=== PATIENT | female | born 2000 | race Caucasian/White ===

== ENCOUNTER → 2020-10-13 16:07 | Outpatient (BNVA) | payer OTHER, SELFPAY | PROVIDERS: Visit Provider Nurse Practitioner Family | DX: Z20.822 Contact with and (suspected) exposure to COVID-19 (principal); Z11.52 Encounter for screening for COVID-19 | CPT/HCPCS: 87635 ==

== ENCOUNTER → 2021-02-28 18:45 | Outpatient (BNVA) | payer SELFPAY | PROVIDERS: Visit Provider Registered Nurse Neonatal Intensive Care | DX: N39.0 Urinary tract infection, site not specified (principal) | CPT/HCPCS: 81000 ==

== ENCOUNTER 2021-04-11 00:48 | Emergency (ER) | payer SELFPAY ==
[2021-04-11 00:57] VITALS: BP 158/103; PULSE 99; RESP 16; TEMP 36.1; O2SAT 99; BMI 34.6
--- NOTE | 2021-04-11 01:40 | USR_ITS ---
PROCEDURE INFORMATION: Exam: US First Trimester, Transabdominal Exam date and time: 04/11/2021 1:40 AM Age: 20 years old Clinical indication: Lmp or gestational age (in weeks): PT unsure guess 8 weeks; Antepartum complications; Bleeding; ; Additional info: Preg vaginal bleeding TECHNIQUE: Imaging protocol: Real-time transabdominal obstetrical ultrasound of the maternal pelvis and a first trimester , less than 14 weeks 0 days, with image documentation. COMPARISON: No relevant prior studies available. FINDINGS: Gestation: There is no evidence for an intrauterine gestation. MATERNAL: Uterus: Heterogeneous material is seen within the uterine endometrium and within the cervix compatible with clotted blood. Cervix: Chronic blood within the cervical canal Right ovary/adnexa: Unremarkable ovary. Left ovary/adnexa: Unremarkable ovary. Intraperitoneal space: No intraperitoneal free fluid. US/US OB <= 14 weeks fetus [id number] IMPRESSION: There is clotted blood seen within the uterine and endocervical canals compatible with incomplete .
[2021-04-11 02:00] LABS: Basophils # 0.1 10^3/uL (0.0-0.1); Basophils % 0.6 %; Eosinophils # 0.1 10^3/uL (0.0-0.8); Eosinophils % 1.3 %; Hematocrit 41.3 % (37.0-47.0); Hemoglobin 13.9 g/dL (11.5-15.3); Lymphocytes # 2.4 10^3/uL (0.8-4.8); Lymphocytes % 27.2 %; Mean Corpuscular HGB Conc 33.7 g/dL (30.0-36.0); Mean Corpuscular Hemoglobin 29.8 pg (28.0-34.0); Mean Corpuscular Volume 88.4 fl (81-99); Mean Platelet Volume 10.1 fL (7.4-10.4); Monocytes # 0.7 10^3/uL (0.2-0.9); Monocytes % 7.6 %; Neutrophils # 5.63 10^3/uL (1.8-7.7); Neutrophils % 63.2 %; Nucleated Red Blood Cells % 0 %; Platelet Count 298 10^3/cmm (130-400); Red Blood Count 4.67 10^6/uL (4.1-5.3); Red Cell Distribution Width 12.8 % (12.1-15.1); White Blood Count 8.9 10^3/uL (4.0-10.0)
[2021-04-11] MEDS: sodium chloride 0.9% 1,000 ML 999 ML IV (02:03)
[2021-04-11 02:12] VITALS: BP 145/81; PULSE 85; RESP 16; TEMP 36.1; O2SAT 99
[2021-04-11 02:30] LABS: Albumin Level 4.4 g/dL (3.5-5.2); Alkaline Phosphatase 83 IU/L (35-105); Blood Urea Nitrogen 10 mg/dL (6-20); Calcium 9.5 mg/dL (8.5-10.5); Carbon Dioxide 21 mmol/L (22-29); Chloride 105 mmol/L (98-107); Globulin 2.9 g/dL (1.3-4.6); Glomerular Filtration Rate 155.7 mL/min (90-130); Glucose 78 mg/dL (65-115); Lipase 27 U/L (13-60); Osmolality Calculated 286 mOsm/kg (285-295); Sodium 139 mmol/L (136-145); Total Bilirubin 0.3 mg/dL (0.15-1.2); Total Protein 7.3 g/dL (6.6-8.7)
[2021-04-11 02:32] LABS: Alanine Aminotransferase 11 U/L (0-33); Anion Gap 17.8 (5-19); Aspartate Amino Transferase 26 U/L (0-32); Potassium 4.8 mmol/L (3.5-5.1)
--- NOTE | 2021-04-11 03:02 | ED_ITS ---
HPI - Female Genitourinary General: Chief complaint: Vaginal Bleeding Stated complaint: ABD Pain Possible Miscarriage Time Seen by Provider: 04/11/21 01:42 History of Present Illness: HPI Narrative: Healthy 20-year-old female who had lost track of her period. She reports that she had taken a test at home and it was positive. She also notes that she passed what looks to her like tissue along with clots 4 to 5 days ago. She has been bleeding since. Last evening her cramping was more intense, and she had continue to bleed. No fever. No vomiting. MD elicited complaint: vaginal bleeding and suspected Pertinent past history: other Onset (ago): day(s) Location of symptoms: pelvis Quality of pain: cramping Consistency: intermittent Vaginal discharge: none Vaginal bleeding: moderate Exacerbating factors: none Relieving factors: none Associated symptoms: Reports abdominal pain, nausea and vaginal bleeding; Deny fevers/chills or syncope Possible : unsure if and at home test positive Review of Systems Const: Denies: fever(s) or chills Card: Denies: chest pain or syncope Resp: Denies: dyspnea GI: Reports: abdominal pain and nausea [facility] ED PFSH: Social History (Updated 10/13/20 @ 15:15 by Mahi Chauhan NP) Smoking and tobacco status: never smoked Alcohol intake: never Physical Exam Const: COMMON NORMALS: no acute distress GENERAL APPEARANCE: cooperative and comfortable; not ill appearing HENMT: COMMON NORMALS: normocephalic and atraumatic HEAD & SCALP: normocephalic and atraumatic Chest: COMMONS NORMALS: normal inspection of the chest Resp: COMMON NORMALS: normal respiratory effort, No use of accessory muscles and clear to auscultation bilaterally AUSCULTATION: clear to auscultation bilaterally Cardio: COMMON NORMALS: regular rate and regular rhythm RATE: regular rate RHYTHM: regular rhythm GI: COMMON NORMALS: Normal to inspection, nondistended, normoactive bowel sounds present and Soft to palpation PALPATION: Yes Soft to palpation and Yes Tenderness to palpation present (GI) (Suprapubic) Details: LLQ and RLQ : SPECULUM EXAM - VAGINA: Yes vaginal bleeding OB/EXTERNAL & SPECULUM: vaginal bleeding Course Vital Signs: Vital signs: Vital Signs Temperature 96.9 F L 04/11/21 02:12 Pulse Rate 85 04/11/21 02:12 Respiratory Rate 16 04/11/21 02:12 Blood Pressure 145/81 04/11/21 02:12 Pulse Oximetry 99 04/11/21 02:12 MDM - Female MDM Narrative: Medical decision making narrative: CBC is normal. BMP is essentially normal. Serum quant is 0.5. Pelvic ultrasound reveals material in the uterus, which could be consistent with incomplete . This would be unlikely with a serum quant of 0.5 unless the was lost very early in gestation several days prior. We will have her follow-up with gynecology as an outpatient. Lab Data: Labs: Lab Results 04/11/21 04/11/21 04/11/21 01:50 01:50 01:50 WBC 8.9 10^3/uL 10^3/ uL (4.0-10.0) RBC 4.67 10^6/uL 10^6 /uL (4.1-5.3) Hgb 13.9 g/dL g/dL (11.5-15.3) Hct 41.3 % % (37.0-47.0) MCV 88.4 fl fl (81-99) MCH 29.8 pg pg (28.0-34.0) MCHC 33.7 g/dL g/dL (30.0-36.0) RDW 12.8 % % (12.1-15.1) Plt Count 298 10^3/cmm 10^3 /cmm (130-400) MPV 10.1 fL fL (7.4-10.4) Neut % (Auto) 63.2 % % Lymph % (Auto) 27.2 % % [place] % (Auto) 7.6 % % Eos % (Auto) 1.3 % % Baso % (Auto) 0.6 % % Neut # (Auto) 5.63 10^3/uL 10^3 /uL (1.8-7.7) Lymph # (Auto) 2.4 10^3/uL 10^3/ uL (0.8-4.8) [place] # (Auto) 0.7 10^3/uL 10^3/ uL (0.2-0.9) Eos # (Auto) 0.1 10^3/uL 10^3/ uL (0.0-0.8) Baso # (Auto) 0.1 10^3/uL 10^3/ uL (0.0-0.1) Nucleated RBC % (a uto) 0 % % Nucleated RBCs # 0.0 /100WBC /100W BC Sodium 139 mmol/L mmol/L (136-145) Potassium 4.8 mmol/L mmol/L (3.5-5.1) Chloride 105 mmol/L mmol/L (98-107) Carbon Dioxide 21 mmol/L L mmol/ L (22-29) Anion Gap 17.8 (5-19) BUN 10 mg/dL mg/dL (6-20) Creatinine 0.5 mg/dL mg/dL (0.5-0.9) GFR Calculation 155.7 mL/min H mL /min (90-130) Glucose 78 mg/dL mg/dL (65-115) Calculated Osmolal ity 286 mOsm/kg mOsm/ kg (285-295) Calcium 9.5 mg/dL mg/dL (8.5-10.5) Total Bilirubin 0.3 mg/dL mg/dL (0.15-1.2) AST 26 U/L U/L (0-32) ALT 11 U/L U/L (0-33) Alkaline Phosphata se 83 IU/L IU/L (35-105) Total Protein 7.3 g/dL g/dL (6.6-8.7) Albumin 4.4 g/dL g/dL (3.5-5.2) Globulin 2.9 g/dL g/dL (1.3-4.6) Lipase 27 U/L U/L (13-60) Ser , Vesna i-Qnt 0.50 mIU/mL mIU/m L Blood Type A Positive Rho(D) Type Positive Discharge Plan Discharge Patient Disposition: Home Clinical Impression: Vaginal bleeding Condition: Stable Prescriptions: No Action No Known Home Medications RF: 0 Discharge Orders: Discharge ED (Routine); Ordered 04/11/21 Ordered By: You Castañeda Referrals: Kaylin Hogan DO [Physician] - 1-3 days Patient Instructions: Miscarriage (ED), Abnormal (Dysfunctional) Uterine Bleeding (ED) Activity Restrictions/Additional Instructions: Return for passage of large clots, soaking 1 pad per hour for more than 3 hours. Return also for fever greater than 100, worsening pain, vomiting liquids, any other concerning symptoms. Coding Level of Care Code ED Batch Operator for Chg Fwd Exam Detailed
[2021-04-11 03:18] VITALS: BP 145/81; PULSE 85; RESP 16; TEMP 36.8; O2SAT 99
--- NOTE | 2021-04-13 15:48 | DCPLANNER ---
Addendum entered by Tessa West 05/23/21 15:37: cafe manager was told that clinic was unable to reach patient to schedule an appointment, clinic sent patient a letter requesting patient to call clinic to schedule an appointment. Original Note: cafe manager had message to schedule a follow up appointment for patient with [facility]. cafe manager [facility], spoke with Nael, gave clinic patients information. cafe manager was told that patients information would be printed and reviewed. Clinic will call patient with appointment information.
== END 2021-04-11 03:19 | disposition home or self-care (01) ==
PROVIDERS: Emergency Provider Emergency Medicine
DX: N93.9 Abnormal uterine and vaginal bleeding, unspecified (principal)
CPT/HCPCS: 76801; 80053; 83690; 84702; 85025; 86900; 96360; 99283; J7030

== ENCOUNTER 2021-04-20 11:26 | Emergency (ER) | payer SELFPAY ==
[2021-04-20 12:55] VITALS: BP 159/103; PULSE 79; RESP 18; TEMP 36.7; O2SAT 99; BMI 34.0
--- NOTE | 2021-04-20 13:06 | US_ITS ---
WS: [id number] TRANSABDOMINAL PELVIC AND TRANSVAGINAL PELVIC ULTRASOUND HISTORY: recent miscarriage, abd pain RLQ COMPARISON: None available. Uterus: 7.0 cm x 5.9 cm x 3.7 cm. Uterus is retroverted on transvaginal imaging. Uterus is normal siz e. Endometrium: 1.4 cm. Thickened heterogeneous endometrium. There is variable echogenicity throughout t he endometrium. No gestational sac. No cardiac activity. Right ovary: 4.9 cm x 3.3 cm x 3.3 cm. RIGHT ovary contains a simple cyst measuring 2.3 x 2.2 cm. The re is slight increased vascularity surrounding the cyst. There are a few additional smaller cysts. Left ovary: 2.1 cm x 2.3 cm x 1.2 cm. Normal size ovary. No free fluid. US/US pelvic with transvaginal IMPRESSION: 1. Thickened heterogeneous endometrium. No intrauterine gestation identified. 2. No free fluid in the cul-de-sac. 3. RIGHT ovarian cyst. 4. If there is a positive beta hCG ectopic is not excluded. Recommen d follow-up with beta hCG levels and/or ultrasound.
--- NOTE | 2021-04-20 13:07 | ED_ITS ---
Documented by User: PA Severino 04/20/21 15:12 HPI - Abdominal Pain General: Chief Complaint: Abdominal Pain Stated Complaint: ABD Pain Time Seen by Provider: 04/20/21 13:05 History of Present Illness: HPI narrative: Presents with abdominal pain. States it was a sharp pain this morning right lower quadrant area and come from the right flank into her pelvic area. Patient was a seen for miscarriage here on April 11. He has not had follow-up. Patient states she might have some discharge that is cloudy. Is not bleeding anymore. Said pain has improved now since she has been here at the ER. Denies any fever chills or problems urinating. Ultrasound study on the revealed that there is still possible tissue inside the uterus. Associated Symptoms: Denies chills, fever(s), nausea and vomiting Review of Systems Const: Denies: fever(s), chills or body aches Eyes: Denies: change in vision or blurry vision ENMT: Denies: throat pain or nasal congestion Card: Denies: chest pain or dyspnea on exertion Resp: Denies: dyspnea, productive cough or non-productive cough GI: Reports: abdominal pain (Right lower quadrant, was acute onset earlier today. Pain is gone now.); Denies: nausea or vomiting : Denies: vaginal odor or vaginal bleeding Musc: Denies: extremity pain Skin/Breast: Denies: rash Neuro: Denies: headache(s) Psych: Denies: anxiety or depression Jose/Lymph: Denies: easy bruising PFSH ED PFSH: Social History (Updated 10/13/20 @ 15:15 by Mahi Chauhan NP) Smoking and tobacco status: never smoked Alcohol intake: never Physical Exam Const: COMMON NORMALS: no acute distress, average body habitus and patient oriented x3 HENMT: COMMON NORMALS: normocephalic HEAD & SCALP: normal to inspection and normocephalic FACE & SINUS: normal facial exam Eye: COMMON NORMALS: conjunctivae normal GENERAL EYE: appearance normal, both eyes and all related structures CONJUNCTIVA: Yes conjunctivae normal Neck/C-Spine: COMMON NORMALS: no JVD Chest: COMMONS NORMALS: normal inspection of the chest Resp: COMMON NORMALS: normal respiratory effort Cardio: COMMON NORMALS: no JVD, regular rate and regular rhythm RATE: regular rate RHYTHM: regular rhythm GI: COMMON NORMALS: Normal to inspection, nondistended, normoactive bowel sounds present PALPATION: Yes Tenderness to palpation present (GI) Extremity: COMMON NORMALS: normal to inspection and full ROM Neuro: COMMON NORMALS: patient oriented x3 Course Vital Signs: Vital signs: Vital Signs Temperature 98.1 F 04/20/21 15:16 Pulse Rate 79 04/20/21 15:16 Respiratory Rate 18 04/20/21 15:16 Blood Pressure 159/103 04/20/21 15:16 Pulse Oximetry 99 04/20/21 15:16 MDM - Abdominal Pain MDM Narrative Medical decision making narrative: Patient here for right lower quadrant pain that started earlier today. Patient was here on the 10th with miscarriage. CBC was done and did not show any signs affection and pelvic ultrasound was done which shows right ovarian cyst beta-hCG is below what it was the other day. Patient in no pain. Lab Data Result diagrams: 04/20/21 13:30 Labs: Lab Results 04/20/21 04/20/21 13:30 13:30 WBC 9.8 10^3/uL 10^3/uL (4.0-10.0) RBC 4.56 10^6/uL 10^6/uL (4.1-5.3) Hgb 13.8 g/dL g/dL (11.5-15.3) Hct 40.2 % % (37.0-47.0) MCV 88.2 fl fl (81-99) MCH 30.3 pg pg (28.0-34.0) MCHC 34.3 g/dL g/dL (30.0-36.0) RDW 12.6 % % (12.1-15.1) Plt Count 300 10^3/cmm 10^3/cmm (130-400) MPV 10.3 fL fL (7.4-10.4) Neut % (Auto) 62.5 % % Lymph % (Auto) 29.3 % % [place] % (Auto) 5.7 % % Eos % (Auto) 1.5 % % Baso % (Auto) 0.6 % % Neut # (Auto) 6.14 10^3/uL 10^3/uL (1.8-7.7) Lymph # (Auto) 2.9 10^3/uL 10^3/uL (0.8-4.8) [place] # (Auto) 0.6 10^3/uL 10^3/uL (0.2-0.9) Eos # (Auto) 0.2 10^3/uL 10^3/uL (0.0-0.8) Baso # (Auto) 0.1 10^3/uL 10^3/uL (0.0-0.1) Nucleated RBC % (auto) 0 % % Nucleated RBCs # 0.0 /100WBC /100WBC Ser , Semi-Qnt 0.50 mIU/mL mIU/mL Discharge Plan Discharge Patient Disposition: Home Clinical Impression: Ovarian cyst Qualifiers: Laterality: right Qualified Code(s): N83.201 - Unspecified ovarian cyst, right side Condition: Stable Prescriptions: No Action No Known Home Medications 0RF Discharge Orders: Discharge ED (Routine); Ordered 04/20/21 Ordered By: Marshall Chinchilla Discharge Diet: Usual diet Discharge Activity: Increase activity as tolerated Patient Instructions: Ovarian Cyst (ED) Activity Restrictions/Additional Instructions: Follow-up with your [employer] doctor as necessary please. Take naproxen 2 tablets 250 mg 2-3 times a day as needed for discomfort. Apply moist heat to area as needed. Return if worsening symptoms. Coding Level of Care Code ED Lead Performance Support Analyst for Chg Fwd Exam Comprehensive Documented by User: Blake Covarrubias DO 04/26/21 06:18 HPI - Abdominal Pain General: Chief Complaint: Abdominal Pain Stated Complaint: ABD Pain Time Seen by Provider: 04/20/21 13:05 PFSH ED PFSH: Social History (Updated 10/13/20 @ 15:15 by Mahi Chauhan NP) Smoking and tobacco status: never smoked Alcohol intake: never Course Vital Signs: Vital signs: Vital Signs Temperature 98.1 F 04/20/21 15:16 Pulse Rate 79 04/20/21 15:16 Respiratory Rate 18 04/20/21 15:16 Blood Pressure 159/103 04/20/21 15:16 Pulse Oximetry 99 04/20/21 15:16 MDM - Abdominal Pain MDM Narrative Medical decision making narrative: Chart reviewed and patient discussed with midlevel. Agree with assessment and plan. Medical Records Attestation: I reviewed the patient's medical records. Lab Data Result diagrams: 04/20/21 13:30 Labs: Lab Results 04/20/21 04/20/21 13:30 13:30 WBC 9.8 10^3/uL 10^3/uL (4.0-10.0) RBC 4.56 10^6/uL 10^6/uL (4.1-5.3) Hgb 13.8 g/dL g/dL (11.5-15.3) Hct 40.2 % % (37.0-47.0) MCV 88.2 fl fl (81-99) MCH 30.3 pg pg (28.0-34.0) MCHC 34.3 g/dL g/dL (30.0-36.0) RDW 12.6 % % (12.1-15.1) Plt Count 300 10^3/cmm 10^3/cmm (130-400) MPV 10.3 fL fL (7.4-10.4) Neut % (Auto) 62.5 % % Lymph % (Auto) 29.3 % % [place] % (Auto) 5.7 % % Eos % (Auto) 1.5 % % Baso % (Auto) 0.6 % % Neut # (Auto) 6.14 10^3/uL 10^3/uL (1.8-7.7) Lymph # (Auto) 2.9 10^3/uL 10^3/uL (0.8-4.8) [place] # (Auto) 0.6 10^3/uL 10^3/uL (0.2-0.9) Eos # (Auto) 0.2 10^3/uL 10^3/uL (0.0-0.8) Baso # (Auto) 0.1 10^3/uL 10^3/uL (0.0-0.1) Nucleated RBC % (auto) 0 % % Nucleated RBCs # 0.0 /100WBC /100WBC Ser , Semi-Qnt 0.50 mIU/mL mIU/mL Discharge Plan Discharge Patient Disposition: Home Clinical Impression: Ovarian cyst Qualifiers: Laterality: right Qualified Code(s): N83.201 - Unspecified ovarian cyst, right side Condition: Stable Prescriptions: No Action No Known Home Medications 0RF Discharge Orders: Discharge ED (Routine); Ordered 04/20/21 Ordered By: Marshall Chinchilla Discharge Diet: Usual diet Discharge Activity: Increase activity as tolerated Patient Instructions: Ovarian Cyst (ED) Activity Restrictions/Additional Instructions: Follow-up with your [employer] doctor as necessary please. Take naproxen 2 tablets 250 mg 2-3 times a day as needed for discomfort. Apply moist heat to area as needed. Return if worsening symptoms. Coding Level of Care Code ED Lead Performance Support Analyst for [place] Fwd Exam Comprehensive
[2021-04-20 13:40] LABS: Basophils # 0.1 10^3/uL (0.0-0.1); Basophils % 0.6 %; Eosinophils # 0.2 10^3/uL (0.0-0.8); Eosinophils % 1.5 %; Hematocrit 40.2 % (37.0-47.0); Hemoglobin 13.8 g/dL (11.5-15.3); Lymphocytes # 2.9 10^3/uL (0.8-4.8); Lymphocytes % 29.3 %; Mean Corpuscular HGB Conc 34.3 g/dL (30.0-36.0); Mean Corpuscular Hemoglobin 30.3 pg (28.0-34.0); Mean Corpuscular Volume 88.2 fl (81-99); Mean Platelet Volume 10.3 fL (7.4-10.4); Monocytes # 0.6 10^3/uL (0.2-0.9); Monocytes % 5.7 %; Neutrophils # 6.14 10^3/uL (1.8-7.7); Neutrophils % 62.5 %; Nucleated Red Blood Cells % 0 %; Platelet Count 300 10^3/cmm (130-400); Red Blood Count 4.56 10^6/uL (4.1-5.3); Red Cell Distribution Width 12.6 % (12.1-15.1); White Blood Count 9.8 10^3/uL (4.0-10.0)
[2021-04-20 15:10] VITALS: BP 159/103; PULSE 79; RESP 18; TEMP 36.7; O2SAT 99
[2021-04-20 15:16] VITALS: BP 159/103; PULSE 79; RESP 18; TEMP 36.7; O2SAT 99
== END 2021-04-20 15:19 | disposition home or self-care (01) ==
PROVIDERS: Emergency Provider Nurse Practitioner Family
DX: N83.201 Unspecified ovarian cyst, right side (principal); Z87.59 Personal history of other complications of pregnancy, childbirth and the puerperium
CPT/HCPCS: 12345; 76830; 76856; 84702; 85025; 99283

== ENCOUNTER 2021-08-01 08:53 | Emergency (ER) | payer OTHER, SELFPAY ==
[2021-08-01] VITALS (11 sets, daily range): BP systolic 121–146; BP diastolic 83–97; PULSE 69–96; RESP 13–21; TEMP 36.6; O2SAT 98–100; BMI 36.3
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
--- NOTE | 2021-08-01 08:54 | ECG_ITS ---
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 Measurements Intervals [place] Rate: 64 P: 47 IL: 130 QRS: 42 QRSD: 97 T: 32 QT: 381 QTc: 396 Interpretive Statements SINUS RHYTHM INTERPRETATION BASED ON A DEFAULT AGE OF 40 YEARS No previous ECG available for comparison Electronically Signed On 08-01-2021 16:31:53 CDT by Scott Smith M.D. [id number]
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
[2021-08-01] MEDS: lactated ringers 1,000 ML 999 ML IV (09:19)
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
[2021-08-01 09:47] LABS: Basophils % 0.5 %; Eosinophils % 0.3 %; Hematocrit 42.1 % (37.0-47.0); Lymphocytes # 1.1 10^3/uL (0.8-4.8); Mean Corpuscular HGB Conc 33.3 g/dL (30.0-36.0); Mean Corpuscular Hemoglobin 29.9 pg (28.0-34.0); Mean Corpuscular Volume 89.8 fl (81-99); Mean Platelet Volume 10.3 fL (7.4-10.4); Monocytes # 0.3 10^3/uL (0.2-0.9); Monocytes % 4.1 %; Neutrophils # 5.99 10^3/uL (1.8-7.7); Nucleated Red Blood Cells % 0 %; Platelet Count 298 10^3/cmm (130-400); Red Blood Count 4.69 10^6/uL (4.1-5.3); Red Cell Distribution Width 12.9 % (12.1-15.1); White Blood Count 7.6 10^3/uL (4.0-10.0)
[2021-08-01 10:03] LABS: Lactic Sepsis W/Reflex 1.8 mmol/L (0.5-2.2)
[2021-08-01 10:05] LABS: Alanine Aminotransferase 15 U/L (0-33); Albumin Level 4.7 g/dL (3.5-5.2); Alkaline Phosphatase 96 IU/L (35-105); Anion Gap 15.5 (5-19); Aspartate Amino Transferase 17 U/L (0-32); Blood Urea Nitrogen 5 mg/dL (6-20); Calcium 8.2 mg/dL (8.5-10.5); Carbon Dioxide 24 mmol/L (22-29); Chloride 106 mmol/L (98-107); Globulin 2.6 g/dL (1.3-4.6); Glomerular Filtration Rate 155.7 mL/min (90-130); Glucose 115 mg/dL (65-115); Osmolality Calculated 292 mOsm/kg (285-295); Potassium 3.5 mmol/L (3.5-5.1); Sodium 142 mmol/L (136-145); Total Bilirubin 0.2 mg/dL (0.15-1.2); Total Protein 7.3 g/dL (6.6-8.7)
[2021-08-01 10:07] LABS: Acetaminophen < 5.0 ug/mL (10-30); Salicylate < 0.3 mg/dL (3-10)
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
[2021-08-01 11:01] LABS: Alcohol Level 187 mg/dL (0-10)
[2021-08-01 11:16] LABS: Amphetamines Screen Urine Negative (Negative); Barbiturates Screen Urine Negative (Negative); Benzodiazepines Screen Urine Negative (Negative); Cocaine Screen Urine Negative (Negative); Opiate Screen Urine Negative (Negative); PCP Screen Urine Negative (Negative); THC Screen Urine Negative (Negative)
[2021-08-01 11:18] LABS: Add Urine Microscopic? YES; Bilirubin Urine Neg (Negative); Blood Urine 3+ (Negative); Glucose Urine UA Norm (Normal); Ketones Urine Negative (Negative); Leukocyte Esterase Urine Negative (Negative); Nitrate Urine Negative (Negative); Protein Urine Neg (Negative); Urine Appearance Clear (CLEAR); Urine Color Straw (Yellow); Urobilinogen Urine Norm (Negative); pH Urine 5 (5-7)
[2021-08-01 11:19] LABS: Add Urine Culture? No; Bacteria Urine 1+ /hpf; Mucus Urine TRACE /hpf; Squamous Epithelial Cell Urine RARE /hpf (0-5); WBC Urine 0-4 /hpf (0-5)
--- NOTE | 2021-08-01 12:16 | PC.NURSE ---
PT placed on continuous NIBP, SpO2, and CM
[2021-08-01 14:12] LABS: HCG, Serum Qual Negative (Negative)
[2021-08-01] MEDS: iohexol 350 mg/mL 100 mL Btl IV (14:32)
--- NOTE | 2021-08-02 12:24 | DCPLANNER ---
Addendum entered by Tessa West 08/04/21 15:06: Patient had a follow up appointment scheduled with Dr. Chauhan on 08.03.21 - patient did attend appointment. Original Note: Patient is to have a follow up appointment scheduled with Dr. Chauhan. ed manager sent patients information to the office of Dr. Chauhan. Patients information will be reviewed. Clinic will call patient with appointment information.
== END 2021-08-01 15:34 | disposition home or self-care (01) ==
PROVIDERS: Emergency Provider Family Medicine
DX: S02.31XA Fracture of orbital floor, right side, initial encounter for closed fracture (principal); X58.XXXA Exposure to other specified factors, initial encounter; Y09 Assault by unspecified means; F10.129 Alcohol abuse with intoxication, unspecified; Y90.6 Blood alcohol level of 120-199 mg/100 ml; R41.0 Disorientation, unspecified; R51.9 Headache, unspecified; R11.2 Nausea with vomiting, unspecified
CPT/HCPCS: 36600; 70450; 70486; 71045; 71260; 72125; 74177; 80051; 80053; 80306; 80307; 81001; 82330; 82805; 83605; 84703; 85025; 93005; 96360; 99285; Q9967

== ENCOUNTER 2021-09-18 19:12 | Emergency (ER) | payer OTHER, SELFPAY ==
[2021-09-18 19:37] VITALS: BP 150/106; PULSE 105; RESP 16; TEMP 36.7; O2SAT 100
--- NOTE | 2021-09-18 20:52 | W.ED.FEMALGU ---
HPI - Female Genitourinary General: Chief complaint: Urogenital-Female Stated complaint: pain in priavte area Time Seen by Provider: 09/18/21 20:41 Source: patient Mode of arrival: ambulatory Limitations: no limitations History of Present Illness: Patient is a 20-year-old female who presents to ED today with a complaint of vaginal discharge, burning, itching, labial swelling and redness. She states symptoms initially began approximately a month ago following an antibiotic course. He states she is not having any pelvic pain or painful intercourse. Reports her last sexual encounter was early July. She does state she has noticed a rash to her genitals. MD elicited complaint: other (vaginal discharge, itching, burning, lesions) Onset (ago): week(s) Location of symptoms: external genitalia Vaginal discharge: white and yellow Vaginal bleeding: none Exacerbating factors: urination (causes burning to skin ) Relieving factors: none Associated symptoms: Reports no associated symptoms and vaginal discharge; Deny abdominal pain Treatment prior to arrival: none Sexual activity: Yes (no new sexual partners) Patient : No Review of Systems Const: Denies: fever(s), chills, body aches, fatigue or malaise GI: Denies: abdominal pain : Reports: genital pruritis and vaginal discharge; Denies: flank pain, dysuria, urinary frequency, urinary urgency, urinary hesitancy, hematuria or pelvic pain Musc: Denies: back pain PFSH ED PFSH: Medical History No significant past medical history Surgical History No pertinent past surgical history Social History Smoking and tobacco status: never smoked Alcohol intake: never Physical Exam Const: COMMON NORMALS: no acute distress, patient oriented x3, no limitations and alert GENERAL APPEARANCE: cooperative Resp: COMMON NORMALS: normal respiratory effort and clear to auscultation bilaterally AUSCULTATION: clear to auscultation bilaterally Cardio: COMMON NORMALS: regular rate and regular rhythm RATE: regular rate RHYTHM: regular rhythm : COMMON NORMALS: Yes no CVA tenderness BLADDER/KIDNEY EXAM: Yes no CVA tenderness OTHER: patient defers pelvic exam; she does have pictures on her phone of genital rash/lesions-she has some minor ulcerative/irritative lesions to bilateral inner labial minora tissue and there appears to be quite a bit of generalized labial erythema/edema; there are no vesicular lesions Back/Pelvis: COMMON NORMALS: no CVA tenderness Neuro: COMMON NORMALS: patient oriented x3 SENSORIUM/ORIENTATION: Yes alert Course Vital Signs: Vital signs: Vital Signs Temperature 98.0 F 09/18/21 19:37 Pulse Rate 105 H 09/18/21 19:37 Respiratory Rate 16 09/18/21 19:37 Blood Pressure 150/106 09/18/21 19:37 Pulse Oximetry 100 09/18/21 19:37 MDM - Female Medical Decision Making Patient testing positive for Trichomonas on her wet prep. Gonorrhea/chlamydia panel pending. UA does not look overly suspicious for UTI. We will culture. negative. Discussed alerting any sexual partners and also getting treatment for them. Discussed without a pelvic exam is hard to definitively diagnose certain conditions including the vulvar lesions that patient has. She states these have been present for over a month. Based on the pictures she showed me I do not overly suspect HSV etiology though certainly a possibility. I did recommend [facility] which she is agreeable to. She states she does want to receive prophylactic treatment for gonorrhea and chlamydia therefore she was given IM Rocephin and will be sent home with doxycycline as well as the Flagyl for the Trichomonas infection. Lab Data Laboratory Results Urine Color Yellow (Yellow) 09/18/21 20:45 Urine Appearance Clear (CLEAR) 09/18/21 20:45 Urine pH 8 (5-7) H 09/18/21 20:45 Ur Specific [place] 1.005 (1.005-1.030) 09/18/21 20:45 Urine Protein Neg (Negative) 09/18/21 20:45 Urine Glucose (UA) Norm (Normal) 09/18/21 20:45 Urine Ketones Negative (Negative) 09/18/21 20:45 Urine Blood Neg (Negative) 09/18/21 20:45 Urine Nitrate Negative (Negative) 09/18/21 20:45 Urine Bilirubin Neg (Negative) 09/18/21 20:45 Urine Urobilinogen Norm mg/dL (Negative) 09/18/21 20:45 Ur Leukocyte Esterase 1+ (Negative) H 09/18/21 20:45 Urine RBC 0-4 /hpf (0-2) H 09/18/21 20:45 Urine WBC 10-15 /hpf (0-5) H 09/18/21 20:45 Ur Squamous Epith Cells 0-4 /hpf (0-5) H 09/18/21 20:45 Amorphous Sediment Not Reportable 09/18/21 20:45 Urine Bacteria Trace /hpf (NONE) 09/18/21 20:45 Urine HCG, Qual Negative (Negative) 09/18/21 20:45 Discharge Plan Discharge Patient Disposition: Home Clinical Impression: Trichomonas vaginalis infection Condition: Stable Prescriptions: New metronidazole 500 mg tablet 500 mg PO BID 7 Days Qty: 14 0RF doxycycline monohydrate 100 mg capsule 100 mg PO Q12H 7 Days Qty: 14 0RF Discontinued amoxicillin-pot clavulanate [Augmentin] 500-125 mg tablet 1 tab PO TID Qty: 21 0RF No Action diclofenac sodium 75 mg tablet,delayed release (DR/EC) 75 mg PO Q12H PRN (Reason: pain) Qty: 20 0RF Discharge Orders: Discharge ED (Routine); Ordered 09/18/21 Ordered By: Amelia Bryson Coding Level of Care Code ED Antichecking Iron Worker for Chg Fwd Exam Expanded Problem Focused
[2021-09-18 21:02] LABS: Add Urine Microscopic? YES; Bilirubin Urine Neg (Negative); Blood Urine Neg (Negative); Glucose Urine UA Norm (Normal); Ketones Urine Negative (Negative); Leukocyte Esterase Urine 1+ (Negative); Nitrate Urine Negative (Negative); Protein Urine Neg (Negative); Specific Gravity, Urine 1.005 (1.005-1.030); Urine Appearance Clear (CLEAR); Urine Color Yellow (Yellow); Urobilinogen Urine Norm (Negative); pH Urine 8 (5-7)
[2021-09-18 21:23] LABS: Add Urine Culture? No; Bacteria Urine TRACE /hpf; RBC Urine 0-4 /hpf (0-2); Squamous Epithelial Cell Urine 0-4 /hpf (0-5)
--- NOTE | 2021-09-19 04:40 | DCPLANNER ---
Addendum entered by Tessa West 11/22/21 16:19: Patient had an appointment scheduled with [facility] - appointment was rescheduled. Addendum entered by Tessa West 10/23/21 15:51: Patient has a follow up appointment scheduled for Sunday, November 02, 2021 at 2:00 with Kacy Dueñas. Clinic will notify patient about appointment information. Original Note: manager protein had message to schedule a follow up appointment for patient with [facility]. manager protein sent patients information to the front office staff at [facility]. Patients information will be printed and reviewed. Clinic will call patient with appointment information.
== END 2021-09-18 22:36 | disposition home or self-care (01) ==
PROVIDERS: Emergency Provider Physician Assistant
DX: A59.01 Trichomonal vulvovaginitis (principal)
CPT/HCPCS: 81001; 81025; 87086; 87210; 87491; 87591; 96372; 99283; J0696

== ENCOUNTER → 2022-02-17 09:50 | Outpatient (BNVA) | payer SELFPAY | PROVIDERS: Visit Provider Obstetrics & Gynecology | DX: Z12.4 Encounter for screening for malignant neoplasm of cervix (principal); N92.6 Irregular menstruation, unspecified | CPT/HCPCS: 83036; 83525; 84443; 88175 ==

== ENCOUNTER → 2022-03-21 16:18 | Outpatient (BNVA) | payer SELFPAY | PROVIDERS: Visit Provider Nurse Practitioner Family | DX: N92.6 Irregular menstruation, unspecified (principal); R30.0 Dysuria; N89.8 Other specified noninflammatory disorders of vagina | CPT/HCPCS: 81000; 81025; 87491; 87591 ==

== ENCOUNTER → 2022-04-20 11:11 | Outpatient (BNVA) | payer SELFPAY | PROVIDERS: Visit Provider Obstetrics & Gynecology | DX: N89.8 Other specified noninflammatory disorders of vagina (principal); R10.2 Pelvic and perineal pain | CPT/HCPCS: 76830 ==

== ENCOUNTER 2022-06-03 23:07 | Emergency (ER) | payer SELFPAY ==
[2022-06-03 23:12] VITALS: BP 127/84; PULSE 91; RESP 16; TEMP 36.8; O2SAT 98; BMI 37.1
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
--- NOTE | 2022-06-03 23:17 | XRR_ITS ---
PROCEDURE INFORMATION: Exam: XR Left Ankle Exam date and time: 06/03/2022 11:25 PM Age: 21 years old Clinical indication: Injury or trauma; Fall; Blunt trauma; Ankle; Left TECHNIQUE: Imaging protocol: Radiologic exam of the left ankle. Views: 3 or more views. COMPARISON: CR (LOW EXM, ) 06/03/2022 11:23 PM FINDINGS: Bones/joints: No acute fracture or dislocation is noted. The skeletal structures seem age-appropriate. Soft tissues: Unremarkable. XR/XR ankle LT min 3V* [id number] IMPRESSION: No acute findings.
--- NOTE | 2022-06-03 23:17 | XRR_ITS ---
PROCEDURE INFORMATION: Exam: XR Left Foot Exam date and time: 06/03/2022 11:23 PM Age: 21 years old Clinical indication: Injury or trauma; Fall; Blunt trauma; Foot; Left TECHNIQUE: Imaging protocol: Radiologic exam of the left foot. Views: 3 or more views. COMPARISON: No relevant prior studies available. FINDINGS: Bones/joints: Normal. Soft tissues: Mild midfoot dorsum soft tissue swelling. XR/XR foot LT min 3V* [id number] IMPRESSION: No acute fracture or dislocation noted.
--- NOTE | 2022-06-09 14:08 | DCPLANNER ---
Addendum entered by Tessa West 06/12/22 13:05: business initiatives manager called patient due to no primary care physician - patient declines at this time, [place]. Original Note: business initiatives manager called patient due to no primary care physician - no answer at this time.
== END 2022-06-03 23:47 | disposition home or self-care (01) ==
PROVIDERS: Emergency Provider Nurse Practitioner Family
DX: S93.492A Sprain of other ligament of left ankle, initial encounter (principal); X50.1XXA Overexertion from prolonged static or awkward postures, initial encounter
CPT/HCPCS: 73610; 73630; 99283